=== PATIENT | male | born 1955 | race Caucasian/White ===

== ENCOUNTER → 2017-02-06 | Outpatient (CLI) | payer OTHER ==
[2017-02-06 11:31] LABS: BLOOD UREA NITROGEN 6 MG/DL (7-18); CREATININE FOR GFR 0.66 MG/DL (0.70-1.30); GLOMERULAR FILTRATION RATE > 60.0 (>49)
--- NOTE | 2017-02-06 14:19 | REP ---
MR BRAIN WITHOUT CONTRAST: HISTORY: Bilateral hearing loss. Contrast: ProHance 15 mL. Areas of increased signal intensity on T2-weighted images are present in the periventricular and subcortical white matter and prerna. This represents small vessel ischemic disease. There is no intraparenchymal hemorrhage, infarct, mass or midline shift. There is no abnormal enhancement. The ventricular system and cortical sulci are dilated consistent with minimal volume loss. There is no extracerebral collection. There is no cerebellopontine angle mass. The inner ear structures are normal in appearance. The mastoid air cells and sinuses are clear. IMPRESSION: 1. Small vessel ischemic disease. 2. Minimal volume loss. Signed by Kevin Madera MD 02/06/2017 02:35 P
== END ==
LOC: M RAD 10:57
PROVIDERS: ATTEND Otolaryngology
DX: H90.3 Sensorineural hearing loss, bilateral (principal); H93.13 Tinnitus, bilateral; J31.0 Chronic rhinitis

== ENCOUNTER 2017-06-18 11:18 | Day surgery (SDC) | payer OTHER ==
[~2017-06-18] VITALS: Ht 172.7 cm; Wt 86.2 kg
[~2017-06-18 11:18] MED LIST: LR 1,000 ML IV ONE
[2017-06-18] MEDS ORDERED: CIPRODEX OTIC SUSP 7.5ML As Ordered ONE (13:35)
[2017-06-18] MEDS ORDERED: fentaNYL 100 MCG/2 ML INJECTION (J3010) As Ordered ONE (13:55)
[2017-06-18] MEDS ORDERED: LIDOCAINE 2% INJ 100 MG/5 ML SDV (FOR ANES.) As Ordered ONE (13:55)
[2017-06-18] MEDS ORDERED: PROPOFOL 200 MG/20 ML VIAL As Ordered ONE (13:55)
[2017-06-18] MEDS ORDERED: MIDAZOLAM INJ 2 MG/2 ML VIAL (J2250) As Ordered ONE (13:55)
[2017-06-18] MEDS ORDERED: ONDANSETRON 4MG/2ML VIAL (J2405) As Ordered ONE (13:55)
[2017-06-18] MEDS ORDERED: PERCOCET 5MG/325MG TAB As Ordered ONE (14:24)
[2017-06-18] MEDS ORDERED: PERCOCET 5MG/325MG TAB PO PRN (14:30)
[2017-06-18] MEDS ORDERED: ONDANSETRON 4MG/2ML VIAL (J2405) IV PRN (14:30)
[2017-06-18] MEDS ORDERED: fentaNYL 100 MCG/2 ML INJECTION (J3010) IV PRN (14:30)
[2017-06-18] MEDS ORDERED: LR 1,000 ML IV SCH (14:30)
[2017-06-18 15:50] VITALS: BP 166/80
--- NOTE | 2017-07-02 09:32 | RO ---
DATE OF PROCEDURE: 06/18/2017 PREPROCEDURE DIAGNOSIS: Eustachian tube dysfunction. POSTPROCEDURE DIAGNOSIS: Eustachian tube dysfunction. PROCEDURE: Bilateral tympanostomy. SURGEON: Dr. Jaime Rogers DRAWER LINER: ANESTHESIA: General. CLINICAL PREAMBLE: This 62-year-old man has multiple set of tympanic membrane tube. He will do well until the tubes are extruded. Management options including replacement of the tympanic membrane tubes have been discussed. Patient understood and consented to the procedure. DESCRIPTION OF PROCEDURE: Patient was identified in preholding and brought to the operating room in stable condition. In the supine position on the operating room table, he received general anesthesia followed by orotracheal intubation without incident. Patient prepped and draped in the usual fashion for the procedure. The patient's head was turned to the left side to expose the right ear. Ear speculum was inserted and cerumen was debrided. The right tympanic membrane was visualized and found to be intact and retracted. Myringotomy incision was made over the anterior-inferior quadrant of tympanic membrane. The middle ear was suctioned clear. A 7 mm straight shank tympanostomy tube was inserted. Ciprodex drops were instilled, and a cotton ball was used to occlude the ear canal. The same procedure was carried out to place the same type of tympanostomy tube to the left ear as well. At the end of the end of the procedure, sponge and needle counts were correct. No complications were encountered. Estimated blood loss was nil. General anesthesia was reversed, and patient was awakened and taken to recovery room in stable condition. DIANNA
== END 2017-06-18 15:50 | disposition home or self-care (01) ==
LOC: M SDC 11:18
PROVIDERS: ATTEND Otolaryngology
DX: H69.93 Unspecified Eustachian tube disorder, bilateral (principal); H93.13 Tinnitus, bilateral; H90.3 Sensorineural hearing loss, bilateral; F17.210 Nicotine dependence, cigarettes, uncomplicated

== ENCOUNTER → 2020-08-17 | Outpatient (CLI) | payer OTHER | LOC: M LABSMTC 10:14 | PROVIDERS: ATTEND Anesthesiology | DX: Z01.812 Encounter for preprocedural laboratory examination (principal); Z20.828 Contact with and (suspected) exposure to other viral communicable diseases | CPT/HCPCS: C9803; U0003 ==

== ENCOUNTER 2020-08-21 07:24 | Day surgery (SDC) | payer OTHER ==
[~2020-08-21] VITALS: Ht 177.8 cm; Wt 83.0 kg
[~2020-08-21 07:24] MED LIST changes: +ceFAZolin SOD 2 GM in IV 1 EA IV ONE; +fentaNYL 100 MCG/2 ML INJECTION (J3010) IV SCH
[2020-08-21] MEDS ORDERED: dexameTHASONE 10MG/1ML VIAL PRES.FREE (J1100 PER 1MG) ONE (07:25)
[2020-08-21] MEDS ORDERED: ROPIvacaine 0.5% 30ML INJECTION (J2795 PER 1MG) ONE (07:25)
[2020-08-21] MEDS ORDERED: LIDOCAINE 1% MDV 20ML VIAL ONE (07:25)
[2020-08-21] MEDS ORDERED: fentaNYL 100 MCG/2 ML INJECTION (J3010) As Ordered ONE ×2 (08:12→08:48)
[2020-08-21] MEDS ORDERED: MIDAZOLAM INJ 2MG/2ML VIAL (J2250 PER 1MG) As Ordered ONE ×2 (08:13→08:48)
[2020-08-21] MEDS ORDERED: KETOROLAC 60MG 2ML VIAL As Ordered ONE ×2 (08:13→10:49)
[2020-08-21] MEDS ORDERED: dexameTHASONE 4 MG/ML 1ML VIAL (J1100 PER 1MG) As Ordered ONE (08:13)
[2020-08-21] MEDS ORDERED: propofoL 200 MG/20 ML VIAL As Ordered ONE (08:13)
[2020-08-21] MEDS ORDERED: ONDANSETRON 4MG/2ML VIAL As Ordered ONE (08:13)
[2020-08-21] MEDS ORDERED: SUGAMMADEX SODIUM 500 MG/5 ML VIAL (BRIDION) As Ordered ONE (08:14)
[2020-08-21] MEDS ORDERED: LIDOCAINE 2% 100MG/5ML SDV (FOR ANES.) As Ordered ONE (08:14)
[2020-08-21] MEDS ORDERED: ROCURONIUM BROMIDE 50 MG/5 ML VIAL As Ordered ONE (08:14)
[2020-08-21] MEDS ORDERED: ALBUTEROL SULFATE 2.5 MG/0.5 ML INH NEB SOLN As Ordered ONE (08:45)
[2020-08-21] MEDS ORDERED: ALBUTEROL SULFATE 2.5 MG/0.5 ML INH NEB SOLN INH ONE (09:00)
[2020-08-21] MEDS: MIDAZOLAM INJ 2MG/2ML VIAL (J2250 PER 1MG) IV SCH ×2 (09:19→09:21)
[2020-08-21] MEDS ORDERED: EPINEPHrine 1MG/ML INJ 30ML MD-VIAL As Ordered ONE (09:51)
[2020-08-21] MEDS ORDERED: ACETAMINOPHEN 1000MG 100ML IV BTL (OFIRMEV) (J0131 PER 10MG) As Ordered ONE (10:50)
[2020-08-21] MEDS ORDERED: PHENYLephrine HCL 500 MCG/5 ML (100MCG/ML) SYRINGE (J2370) As Ordered ONE ×2 (10:58→11:51)
[2020-08-21] MEDS ORDERED: LR 1,000 ML IV SCH ×2 (13:00→13:15)
[2020-08-21] MEDS ORDERED: ACETAMINOPHEN TAB 650MG DOSE (2X325MG) PO PRN (13:00)
[2020-08-21] MEDS ORDERED: fentaNYL 100 MCG/2 ML INJECTION (J3010) IV PRN (13:15)
[2020-08-21] MEDS ORDERED: ONDANSETRON 4MG/2ML VIAL IV PRN ×2 (13:15)
[2020-08-21] MEDS ORDERED: MORPHINE 2 MG/ML 1ML VIAL (J2270) IV PRN (13:15)
[2020-08-21] MEDS ORDERED: oxyCODONE 5MG TAB PO PRN (13:15)
[2020-08-21] MEDS ORDERED: PERCOCET 5MG/325MG TAB PO PRN (13:15)
[2020-08-21 15:35] VITALS: BP 119/79
--- NOTE | 2020-08-22 08:50 | RO ---
DATE OF OPERATION: 08/21/2020 PREOPERATIVE DIAGNOSIS: Left shoulder rotator cuff tear. POSTOPERATIVE DIAGNOSIS: Left shoulder rotator cuff tear, type 2 SLAP tear. PLANNED PROCEDURE: Left shoulder arthroscopic rotator cuff repair. PROCEDURE PERFORMED: Left shoulder arthroscopic rotator cuff repair, subacromial decompression, subpectoral open biceps tenodesis. SURGEON: Nathan Maldonado MD RN ENTEROSTOMAL: [facility] EM[facility]GENCY RO[facility] ORDERLY: Susanna Bernabe TYPE OF ANESTHETIC: General anesthetic plus block. OPERATIVE PREAMBLE: This 65-year-old man failed conservative management. He had had a previous rotator cuff repair x2 on the other side. He wished to go ahead with surgery. Discussed the pros, cons, risks and benefits and I reiterated the risks, in the preoperative holding marked the left upper extremity and proceeded to surgery after the patient received preoperative block. OPERATIVE REPORT: The patient was brought to the operating theater and administered general anesthetic. He was administered 2 gm IV Ancef prior to the start of the case. He was placed in left lateral decubitus in beanbag positioner. Axillary roll was placed. SCDs were used on the down legs as well as bear hugger. Limb was prepped and draped in the usual sterile fashion with Chlorhexidine-based prep solution. Solution was allowed to dry over 3 minutes prior to draping. 10 pounds of traction was used throughout the case, 45 degrees abduction. Preoperative time out was performed confirming site, patient and surgery. I began by inserting the arthroscope through standard posterior approach into the interarticular portion of the shoulder. Using spinal needle localization inside-out localization technique to perform an anterior portal and through the rotator interval just posterior to the biceps tendon. I performed debridement of the circumferential aspect of the labrum. Cartilage had grade 2 to 3 changes in the glenoid, more toward 6 o'clock position. Normal only grade 1 softening. There was an obvious anterior supraspinatus tendon tear, no other rotator cuff tears. The biceps was unstable, type 2 SLAP tear. I performed biceps tenotomy intraarticular with the ablating instrument. I then withdrew the scope and placed in subacromial space. I performed two lateral portals and inserted two cannulas there. I had to stop the anterolateral leading edge of the acromion. I performed subacromial decompression as well as takedown of the CA ligament for its breadth. I gently debrided the edge of the tear. This was on the anterior leading edge consistent with the MRI findings. The tear measured approximately 1.5 cm anterior to posterior as well as 1.5 cm medial to lateral. It was a small crescent-shaped tear. I used a bur to create a bleeding bed just on the undersurface of the tear of the greater tuberosity. Later laid a small amount of soft tissue just lateral to the tear on the down slope of the proximal humerus. I then used #2 FiberWire suture two stitches in inverted horizontal mattress fashion to form four suture limbs. I tapped for an Arthrex anchor down to the second line of the punch. I then inserted the sutures into the anchor, appropriately tensioned them and inserted the anchor and cut the sutures short in a stay suture. This is an Arthrex 4.25 mm Bio-Composite SwiveLock anchor. It achieved appropriate footprint compression of small anterior leading edge tear. I then turned my attention to performing subpectoral biceps tenodesis. I made a small longitudinal incision centered over long head of the biceps just at pectoralis major on proximal edge medial aspect of upper humerus. Carried the dissection down through skin and subcutaneous tissue and achieved meticulous hemostasis. I identified the long head of the biceps and delivered this through the incision. I moved pathological appearing tendon from proximal end of the tendon. I used the Arthrex Bio-Tenodesis Button System. I used the Kristian needle to perform whip stitching of at least six whip stitches starting at the musculotendinous junction and locking it distally. I then passed the sutures in alternating fashion through the button. I cleared of any soft tissue and identified the groove on the proximal humerus at the level of the pectoralis major just distal to this. I drilled bicortical using spade-tip drill and then inserted the button bicortical and tensioned the sutures down to deliver the tendon into drill hole and deliver the tendon into the tunnel. These were tied over using alternating half hitches and cut short. The tension appeared appropriate. Wound was thoroughly irrigated. Subcutaneous tissue was closed with interrupted 2-0 Vicryl suture and 3-0 Monocryl. Skin was cleaned with wet-to-dry dressing followed by application of Steri-Strips, Adaptic, 4 x 8 gauze, ABD dressing and cloth tape. The patients upper extremity placed into a sling. The patient was awoken from general anesthetic, transferred off the operating table and taken to postanesthetic care unit in stable condition. All sponge, instrument and needle counts were correct. No complications. Estimated blood loss 50 mL. Plan is for the patient to be discharged home according to day surgery criteria. She will remain in a sling, pendulum exercises but no active elbow range of motion, only passive. Follow up in 2 weeks time. Prescription was sent to pharmacy of choice. Change dressing on postop day 2 but avoid showering or tub for first 14 days. [employer] Susanna Bernabe was instrumental in holding retractors, achieving visualization and completing the case. DIANNA
--- NOTE | 2020-08-24 07:51 | ECGEPIP ---
[facility] Test Date: 2020-08-21 Pat Name: MARCELINA SPRAGUE Department: Room: - Gender: Male Career Development Coordinator: : [id number] Requested By: KEI Mloina Order Number: [id number] Reading MD: Leopoldo Mcwilliams Measurements Intervals [place] Rate: 87 P: 50 [place]: 140 QRS: 28 QRSD: 99 T: 29 QT: 360 QTc: 434 Interpretive Statements SINUS RHYTHM Normal Electronically Signed on 08-24-2020 7:51:50 EDT by Leopoldo Mcwilliams
== END 2020-08-21 15:37 | disposition home or self-care (01) ==
LOC: M SDC 07:24
PROVIDERS: ATTEND Orthopaedic Surgery Sports Medicine
DX: M75.102 Unspecified rotator cuff tear or rupture of left shoulder, not specified as traumatic (principal); S43.432A Superior glenoid labrum lesion of left shoulder, initial encounter; F17.218 Nicotine dependence, cigarettes, with other nicotine-induced disorders; J44.9 Chronic obstructive pulmonary disease, unspecified; Z88.8 Allergy status to other drugs, medicaments and biological substances; Y92.89 Other specified places as the place of occurrence of the external cause; Y93.9 Activity, unspecified; Y99.9 Unspecified external cause status; X58.XXXA Exposure to other specified factors, initial encounter
CPT/HCPCS: 23430; 29826; 29827; 64415; 88304; 93005; C1713; J0131; J0690; J1100; J1885; J2250; J2370; J2405; J2795; J3010

== ENCOUNTER 2021-02-11 14:25 | Emergency (ER) | payer MEDICAID, OTHER ==
[~2021-02-11] VITALS: Ht 177.8 cm; Wt 98.9 kg
[2021-02-11 16:12] LABS: BASO % 0.4 % (0.0-1.0); EOS # 0.3 10^3/uL (0.0-0.5); EOS % 3.7 % (0.0-3.0); HEMATOCRIT 28.5 % (42.0-52.0); HEMOGLOBIN 8.4 g/dl (13.5-17.5); LYMPH % 12.6 % (24.0-44.0); MEAN CORPUSCULAR HEMOGLOBIN 20.5 pg (27.0-33.0); MEAN CORPUSCULAR HGB CONC 29.5 g/dl (32.0-36.5); MEAN CORPUSCULAR VOLUME 69.7 fl (80.0-96.0); MONO # 1.4 10^3/uL (0.0-0.8); MONO % 16.6 % (2.0-8.0); NEUTROPHILS # 5.4 10^3/uL (1.5-8.5); NEUTROPHILS % 66.5 % (36.0-66.0); PLATELET COUNT, AUTOMATED 155 10^3/uL (150-450); RED BLOOD COUNT 4.09 10^6/uL (4.30-6.10); WHITE BLOOD COUNT 8.1 10^3/uL (4.0-10.0)
[2021-02-11 16:24] LABS: INR 1.34; PROTHROMBIN TIME 16.9 SECONDS (12.5-14.3)
[2021-02-11 16:25] LABS: PARTIAL THROMBOPLASTIN TIME 36.1 SECONDS (24.2-38.5)
[2021-02-11 16:37] LABS: BLOOD UREA NITROGEN 4 MG/DL (7-18); CALCIUM LEVEL 8.5 MG/DL (8.8-10.2); CARBON DIOXIDE LEVEL 27 MEQ/L (21-32); CHLORIDE LEVEL 100 MEQ/L (98-107); CREATININE FOR GFR 0.57 MG/DL (0.70-1.30); GLOMERULAR FILTRATION RATE > 60.0 (>49); GLUCOSE, FASTING 112 MG/DL (70-100); POTASSIUM SERUM 3.8 MEQ/L (3.5-5.1); SODIUM LEVEL 133 MEQ/L (136-145)
[2021-02-11 16:39] LABS: ALBUMIN 3.3 GM/DL (3.2-5.2); BILIRUBIN,DIRECT 0.5 MG/DL (0.0-0.2); ETHYL ALCOHOL (ETHANOL) 0.101 % (0.000-0.010); TOTAL PROTEIN 7.5 GM/DL (6.4-8.2)
[2021-02-11 19:15] VITALS: BP 119/75
== END 2021-02-11 22:10 | disposition home or self-care (01) ==
LOC: M ED 14:25
DX: K70.31 Alcoholic cirrhosis of liver with ascites (principal); D64.9 Anemia, unspecified; I10 Essential (primary) hypertension; E78.5 Hyperlipidemia, unspecified; F10.10 Alcohol abuse, uncomplicated; F17.200 Nicotine dependence, unspecified, uncomplicated

== ENCOUNTER → 2021-02-26 | Outpatient (POV) | payer MEDICARE, MEDICAID ==
[~2021-02-26] VITALS: Ht 177.8 cm; Wt 86.8 kg
[2021-02-26 10:28] VITALS: BP 140/80
--- NOTE | 2021-02-27 13:41 | IRCOV ---
[facility] IR Consult Office Visit IR Consult Office Visit REASON FOR CONSULTATION/CHIEF COMPLAINT: Ascites. HISTORY OF PRESENT ILLNESS: 66-year-old male who has received his care in the past at [facility] and [place], is referred to us for evaluation of his alcoholic cirrhosis and ascites. Patient states that he drank very heavy for many many years and he has cirrhosis of the liver. He has cut down his drinking to 12 beers a day. He denies any history of hepatitis. He does not see gastroenterology or a liver specialist. He states he had an endoscopy 6 years ago which showed he had an ulcer. He doesn't know if he has varices. He denies hematemesis or melena. He describes sometimes his belly gets distended and the last time it was very distended and uncomfortable, he underwent a paracentesis in [place]. He reports this is done in December 2020. He feels full at the moment and thinks he might need to have fluid drained from his abdomen. He is not on any diuretics. He is not on any medication. He denies prior liver biopsy. ALLERGIES: Please see below. HOME MEDICATIONS: Please see below. PAST MEDICAL HISTORY: Alcoholic liver cirrhosis PAST SURGICAL HISTORY: Patient denies prior surgery FAMILY HISTORY: Noncontributory. SOCIAL HISTORY: Drinks 12 beers a day. Denies alcohol or drugs. REVIEW OF SYSTEMS: Otherwise negative. PHYSICAL EXAMINATION: VITAL SIGNS: Please see below. GENERAL APPEARANCE: Appears well. Comfortable at rest. HEENT: No scleral icterus. RESPIRATORY: Normal breathing at rest. CARDIOVASCULAR: Normal rate. Systolic murmur. ABDOMEN: Distended. Shifting dullness. Nontender. Umbilical hernia observed. EXTREMITIES: Mild edema. NEUROLOGICAL: Alert and oriented. PSYCHIATRIC: Appropriate to circumstance. LABORATORY DATA: 02/11/2021 hemoglobin 8.4 hematocrit 28.5 WBC 8.1 platelets 155 sodium 133 potassium 3.8 BUN 4 creatinine 0.57 GFR greater than 60 total bilirubin 1.0 AST 35 ALT 24 ALP 129 albumin 3.3 INR 1.34 Na Meld score: 10 Imaging: No abdominal imaging in the system. ASSESSMENT/PLAN: 66-year-old male with self-reported alcohol-related cirrhosis and suspected ascites. Patient will be referred to gastroenterology to establish care for annual variceal surveillance and to start diuretics for medical management of ascites. Patient will be referred to [facility] for paracentesis. Patient does not have an indication at present for a TIPS. I spent 30 minutes in consultation with the patient. Thank you for this referral. Cc Francine Mclaughlin. [facility] Cc Dr. Li Allergies Coded Allergies: Loihfca-Qdd-Pnp Reductase Inhibitor (Verified Adverse Reaction, Intermediate, MAKES PATIENT FEEL EXTREMELY ILL, 08/16/20) Home Medications No Active Prescriptions or Reported Meds VS, I&O, 24H, Fishbone Vital Signs/I&O Vital Signs Date Time Temp Pulse Resp B/P (MAP) Pulse Ox O2 Delivery O2 Flow Rate FiO2 02/26/21 10:28 98.7 92 20 140/80 (100) 100 Room Air NOEMI ARTEAGA MD Feb 27, 2021 13:41
== END ==
LOC: M IRPOV 10:04
PROVIDERS: ATTEND Radiology Diagnostic Radiology
DX: K70.31 Alcoholic cirrhosis of liver with ascites (principal); Z88.8 Allergy status to other drugs, medicaments and biological substances

== ENCOUNTER → 2021-02-28 | Outpatient (CLI) | payer MEDICARE, MEDICAID ==
--- NOTE | 2021-02-28 14:54 | REP ---
INDICATION: ASCITES, CIRRHOSIS. COMPARISON: None TECHNIQUE: Four-quadrant ultrasound to assess for ascites FINDINGS: There is no evidence of ascites IMPRESSION: Unremarkable 4 quadrant ultrasound. Accredited by the [employer] in General Ultrasound. <Electronically signed by Nader Sotelo > 02/28/21 [id number]
== END ==
LOC: M IRPRO 13:24
PROVIDERS: ATTEND Radiology Diagnostic Radiology
DX: R18.8 Other ascites (principal); Z53.9 Procedure and treatment not carried out, unspecified reason

== ENCOUNTER → 2021-04-26 | Outpatient (CLI) | payer MEDICARE, MEDICAID ==
[2021-04-26 17:53] LABS: CREATININE,RANDOM URINE 17.1 MG/DL
[2021-04-26 17:54] LABS: HEMATOCRIT 29.4 % (42.0-52.0); HEMOGLOBIN 8.7 g/dl (13.5-17.5); MEAN CORPUSCULAR HEMOGLOBIN 21.2 pg (27.0-33.0); MEAN CORPUSCULAR HGB CONC 29.6 g/dl (32.0-36.5); MEAN CORPUSCULAR VOLUME 71.7 fl (80.0-96.0); PLATELET COUNT, AUTOMATED 122 10^3/uL (150-450); WHITE BLOOD COUNT 5.8 10^3/uL (4.0-10.0)
[2021-04-26 17:55] LABS: ALBUMIN 3.6 GM/DL (3.2-5.2); ALT/SGPT 26 U/L (12-78); BILIRUBIN,DIRECT 0.4 MG/DL (0.0-0.2); BILIRUBIN,TOTAL 0.8 MG/DL (0.2-1.0); BLOOD UREA NITROGEN 3 MG/DL (7-18); CALCIUM LEVEL 8.7 MG/DL (8.8-10.2); CARBON DIOXIDE LEVEL 26 MEQ/L (21-32); CHLORIDE LEVEL 104 MEQ/L (98-107); CREATININE FOR GFR 0.57 MG/DL (0.70-1.30); GLOMERULAR FILTRATION RATE > 60.0 (>49); GLUCOSE, FASTING 90 MG/DL (70-100); MAGNESIUM LEVEL 2.3 MG/DL (1.8-2.4); POTASSIUM SERUM 3.8 MEQ/L (3.5-5.1); SODIUM LEVEL 138 MEQ/L (136-145); TOTAL PROTEIN 7.8 GM/DL (6.4-8.2)
[2021-04-26 18:06] LABS: INR 1.29; PARTIAL THROMBOPLASTIN TIME 35.5 SECONDS (24.2-38.5); PROTHROMBIN TIME 16.4 SECONDS (12.5-14.3)
[2021-04-26 18:17] LABS: HEPATITIS B SURFACE ANTIGEN NEGATIVE (NEGATIVE)
[2021-04-26 18:33] LABS: ANISOCYTOSIS 3+; ATYPICAL LYMPH 5 % (0-5); BASOPHILS 1 % (0-1); HYPOCHROMASIA 2+; LYMPHOCYTES 15 % (16-44); MICROCYTOSIS 2+; MONOCYTES 10 % (0-5); NEUTROPHILS 69 % (28-66); PLATELET ESTIMATE DECREASED (NORMAL)
[2021-04-26 18:34] LABS: POLYCHROMASIA 1+
[2021-04-26 18:46] LABS: HEPATITIS C VIRUS ABY INDEX < 0.0 INDEX (<0.8)
[2021-04-28 06:37] LABS: HEPATITIS A IgG TOTAL Negative (Negative); HEPATITIS B CORE ANTIBODY IGG Negative (Negative)
== END ==
LOC: M LAB 16:32
PROVIDERS: ATTEND Internal Medicine Gastroenterology
DX: K70.31 Alcoholic cirrhosis of liver with ascites (principal)

== ENCOUNTER → 2021-05-09 | Outpatient (CLI) | payer MEDICARE, MEDICAID ==
[~2021-05-09] MED LIST changes: +FURO40TA2 PO; -LR 1,000 ML IV ONE; +SPIR50TA4 PO; -ceFAZolin SOD 2 GM in IV 1 EA IV ONE; -fentaNYL 100 MCG/2 ML INJECTION (J3010) IV SCH
[2021-05-09 15:08] VITALS: BP 119/85
[2021-05-09 17:37] LABS: APPEARANCE, BODY FLUID HAZY (CLEAR); ASCITES FL COLOR YELLOW (COLORLESS); SOURCE, BODY FLUID ASCITES
[2021-05-09 18:31] LABS: SOURCE, BODY FLUID ALBUMIN ASCITES; SOURCE, BODY FLUID TOT PROTEIN ASCITES; TOTAL PROTEIN, BODY FLUID 2.7 G/DL (NOT ESTABLISHED)
--- NOTE | 2021-05-10 11:17 | REP ---
INDICATION: ALCOHOLIC CIRRHOSIS OF LIVER. COMPARISON: None. TECHNIQUE: The procedure was performed under the direct supervision of Dr. Durant. The risks and benefits of the procedure were explained to the patient and informed consent was obtained. The largest pocket of fluid was localized in the right flank using ultrasound guidance. The skin was prepped and draped in a sterile fashion. 1% lidocaine was used as a local anesthetic. Using ultrasound guidance, an 8-Wolof multi side-hole catheter was inserted using trocar technique.650 cc of yellow fluid was withdrawn with a sample sent to the lab for analysis. The patient tolerated the procedure well and there were no immediate complications. After the appropriate amount of monitored convalescence, the patient was discharged from the department. FINDINGS: None IMPRESSION: Ultrasound-guided paracentesis cc of yellow fluid. <Electronically signed by Prasanna Nash > 05/09/21 [id number] <Electronically signed by Angel Durant > 05/10/21 [id number]
== END ==
LOC: M IRPRO 14:16
PROVIDERS: ATTEND Internal Medicine Gastroenterology
DX: K70.31 Alcoholic cirrhosis of liver with ascites (principal)

== ENCOUNTER → 2021-05-22 | Outpatient (CLI) | payer MEDICARE, MEDICAID ==
--- NOTE | 2021-05-22 08:56 | REP ---
INDICATION: CIRRHOSIS OF LIVER W/ ASCITES W/ HTN. COMPARISON: 02/28/2021. TECHNIQUE: Real-time sonographic evaluation of ABDOMEN PERFORMED, WITH DUPLEX DOPPLER EVALUATION OF PORTAL VASCULATURE. FINDINGS: The gallbladder demonstrates no evidence of intraluminal sludge or calculi, wall thickening or pericholecystic fluid. There is no intrahepatic or extrahepatic biliary dilatation, common bile duct measures 5 mm in maximum diameter. The liver is coarsened and heterogeneous in echotexture with no focal mass. There are lobulated margins. The findings are compatible with cirrhosis. Visualized pancreas is grossly unremarkable, not optimally seen due to overlying bowel gas. Spleen is normal in length 11.9 cm with no intrinsic abnormality, however, splenic index is increased. Spleen measures 11.9 x 11.7 x 7.0 cm, splenic index 974.6. There is no evidence of hydronephrosis, cyst, mass, or calculus in either kidney. The right kidney measures 13.8 x 7.4 x 5.6 cm. Left renal dimensions are 10.3 x 4.2 x 4.4 cm. The abdominal aorta could not be visualized due to overlying bowel gas. There is a small amount of perihepatic fluid. The main portal vein measures 9 mm in diameter. The splenic vein and portal veins demonstrate normal direction of flow, with normal flow velocities. Phasic waveforms are noted in the portal veins. There is no portal vein thrombosis. Hepatic veins are patent with no thrombus. There is decreased phasicity in the hepatic veins. Patent main hepatic artery demonstrates peak systolic velocity of 152.7 centimeters/second. IMPRESSION: The liver has a cirrhotic appearance with no gross mass. Mild perihepatic fluid. Splenomegaly. Portal vasculature demonstrates normal direction of flow with no thrombosis. No evidence of hepatic vein thrombosis. Phasic waveforms in the portal veins. Decreased phasicity in the hepatic veins. <Electronically signed by Angel Durant > 05/22/21 [id number]
== END ==
LOC: M RAD 07:22
PROVIDERS: ATTEND Internal Medicine Gastroenterology
DX: K70.31 Alcoholic cirrhosis of liver with ascites (principal); K76.6 Portal hypertension

== ENCOUNTER → 2021-05-30 | Outpatient (CLI) | payer MEDICARE, MEDICAID ==
--- NOTE | 2021-05-30 14:58 | REP ---
INDICATION: LUNG NODULE ABN CXR. Evaluate prostate, pre and postvoid bladder volume check for bladder outlet obstruction. COMPARISON: None. TECHNIQUE: Transabdominal scanning is performed with including pre and postvoid imaging. FINDINGS: Prevoid bladder volume is calculated at 229 mL. Bladder lechuga are somewhat trabeculated diffusely. Lechuga are somewhat thickened 5-6 mm. The postvoid bladder volume is calculated at 116 mL, 51% postvoid residual. There is a tiny trace of fluid in the pelvic reflection. The prostate dimensions are 4.2 x 3.6 x 3.5 cm on transabdominal imaging for a calculated prostate volume of 27.7 mL. Prostate gland subtly elevates the base of the bladder. IMPRESSION: Trabeculated bladder lechuga. 51% postvoid residual. Mildly prominent prostate gland.. <Electronically signed by Rich Davila > 05/30/21 [id number]
== END ==
LOC: M RAD 14:10
PROVIDERS: ATTEND Internal Medicine Gastroenterology
DX: K70.31 Alcoholic cirrhosis of liver with ascites (principal)

== ENCOUNTER → 2021-11-14 | Outpatient (CLI) | payer MEDICARE, MEDICAID ==
[~2021-11-14] MED LIST changes: +ASPI-551 PO; +FOLI1TAB11 PO; +LACT10SO3 PO; +LISI5TAB11 PO; +PANT40TA29 PO; +POTA-136 PO; +SUCR1TA PO; +TAMS1CAP17 PO; +THIA100T22 PO; +VITMTA PO
[2021-11-14 12:17] LABS: BASO % 0.3 % (0.0-1.0); EOS # 0.1 10^3/uL (0.0-0.5); EOS % 0.9 % (0.0-3.0); HEMATOCRIT 34.3 % (42.0-52.0); HEMOGLOBIN 11.1 g/dl (13.5-17.5); LYMPH # 0.8 10^3/uL (1.5-5.0); MEAN CORPUSCULAR HEMOGLOBIN 27.8 pg (27.0-33.0); MEAN CORPUSCULAR HGB CONC 32.4 g/dl (32.0-36.5); MEAN CORPUSCULAR VOLUME 85.8 fl (80.0-96.0); MONO # 1.2 10^3/uL (0.0-0.8); MONO % 16.7 % (2.0-8.0); NEUTROPHILS # 4.8 10^3/uL (1.5-8.5); NEUTROPHILS % 69.7 % (36.0-66.0); PLATELET COUNT, AUTOMATED 118 10^3/uL (150-450); WHITE BLOOD COUNT 6.9 10^3/uL (4.0-10.0)
[2021-11-14 12:27] LABS: INR 1.34
[2021-11-14 12:28] LABS: PARTIAL THROMBOPLASTIN TIME 35.5 SECONDS (25.9-37.0)
[2021-11-14 12:38] LABS: ALBUMIN 3.4 GM/DL (3.2-5.2); ALT/SGPT 24 U/L (12-78); BILIRUBIN,DIRECT 0.5 MG/DL (0.0-0.2); BLOOD UREA NITROGEN 10 MG/DL (7-18); CALCIUM LEVEL 9.6 MG/DL (8.8-10.2); CARBON DIOXIDE LEVEL 25 MEQ/L (21-32); CHLORIDE LEVEL 100 MEQ/L (98-107); CREATININE FOR GFR 0.79 MG/DL (0.70-1.30); GLOMERULAR FILTRATION RATE > 60.0 (>49); GLUCOSE, FASTING 105 MG/DL (70-100); POTASSIUM SERUM 4.4 MEQ/L (3.5-5.1); SODIUM LEVEL 134 MEQ/L (136-145); TOTAL PROTEIN 7.2 GM/DL (6.4-8.2)
== END ==
LOC: M LAB 11:33
PROVIDERS: ATTEND Internal Medicine Gastroenterology
DX: K42.9 Umbilical hernia without obstruction or gangrene (principal); K70.31 Alcoholic cirrhosis of liver with ascites

== ENCOUNTER → 2021-11-14 | Outpatient (CLI) | payer MEDICARE, MEDICAID | LOC: M LABSMTC 10:06 | PROVIDERS: ATTEND Anesthesiology | DX: Z01.818 Encounter for other preprocedural examination (principal); Z11.52 Encounter for screening for COVID-19 ==

== ENCOUNTER → 2021-12-12 | Outpatient (CLI) | payer MEDICARE, MEDICAID ==
[~2021-12-12] MED LIST changes: +GASTROGRAFIN SOLUTION 30ML (Q9963) As Ordered ONE; +HYDR-3715 PO
== END ==
LOC: M RAD 13:53
PROVIDERS: ATTEND Internal Medicine Gastroenterology
DX: K42.9 Umbilical hernia without obstruction or gangrene (principal)
CPT/HCPCS: 74176; Q9963

== ENCOUNTER 2021-12-31 11:25 | Day surgery (SDC) | payer MEDICARE, MEDICAID ==
[~2021-12-31] VITALS: Ht 177.8 cm; Wt 83.5 kg
[~2021-12-31 11:25] MED LIST changes: -GASTROGRAFIN SOLUTION 30ML (Q9963) As Ordered ONE; +LIDOCAINE 1% MDV 20ML VIAL SQ PRN; +LIDOCAINE 2% 100MG/5ML SDV (FOR ANES.) As Ordered ONE; +LR 1,000 ML IV ONE; +MIDAZOLAM INJ 2MG/2ML VIAL (J2250 PER 1MG) As Ordered ONE; +ceFAZolin SOD 2 GM in IV 1 EA IV ONE; +fentaNYL 100 MCG/2 ML INJECTION As Ordered ONE; +propofoL 200 MG/20 ML VIAL As Ordered ONE
[2021-12-31] MEDS ORDERED: BUPIVACAINE HCL 0.25% 30ML VIAL As Ordered ONE (12:42)
[2021-12-31] MEDS ORDERED: PERCOCET 5MG/325MG TAB PO PRN (13:30)
[2021-12-31] MEDS ORDERED: LR 1,000 ML IV SCH (13:30)
[2021-12-31] MEDS ORDERED: ONDANSETRON 4MG/2ML VIAL IV PRN (13:30)
[2021-12-31 13:45] VITALS: BP 128/76
== END 2021-12-31 14:00 | disposition home or self-care (01) ==
LOC: M SDC 11:25
PROVIDERS: ATTEND Surgery
DX: L76.34 Postprocedural seroma of skin and subcutaneous tissue following other procedure (principal); K70.30 Alcoholic cirrhosis of liver without ascites; F17.218 Nicotine dependence, cigarettes, with other nicotine-induced disorders; I25.10 Atherosclerotic heart disease of native coronary artery without angina pectoris; I10 Essential (primary) hypertension; Z79.82 Long term (current) use of aspirin; Z79.899 Other long term (current) drug therapy; Z88.8 Allergy status to other drugs, medicaments and biological substances
CPT/HCPCS: 10140; J0690; J2250; J3010

== ENCOUNTER → 2024-01-01 | Outpatient (CLI) | payer MEDICARE, MEDICAID ==
[~2024-01-01] MED LIST changes: +ERGO500029 PO; -LIDOCAINE 1% MDV 20ML VIAL SQ PRN; -LIDOCAINE 2% 100MG/5ML SDV (FOR ANES.) As Ordered ONE; -LR 1,000 ML IV ONE; -MIDAZOLAM INJ 2MG/2ML VIAL (J2250 PER 1MG) As Ordered ONE; -ceFAZolin SOD 2 GM in IV 1 EA IV ONE; -fentaNYL 100 MCG/2 ML INJECTION As Ordered ONE; -propofoL 200 MG/20 ML VIAL As Ordered ONE
== END ==
LOC: M RAD 10:10
PROVIDERS: ATTEND Physician Assistant Medical
DX: I70.203 Unspecified atherosclerosis of native arteries of extremities, bilateral legs (principal)

== ENCOUNTER 2024-01-12 07:49 | Day surgery (SDC) | payer MEDICARE, MEDICAID ==
[~2024-01-12] VITALS: Ht 172.7 cm; Wt 100.2 kg
[2024-01-12] MEDS: PHENYLEPHRINE 2.5% OPHTH SOL 2ML OS SCH (08:27)
[2024-01-12] MEDS: PROPARACAINE 0.5% OPHTH SOL 15ML OS ONE (08:27)
[2024-01-12] MEDS: ATROPINE SULFATE 1% OPHTH SOLN 2ML BTL OS SCH (08:27)
[2024-01-12] MEDS: OFLOXACIN 0.3 % (OCUFLOX) OPTH SOL 5ML OS SCH (08:28)
[2024-01-12] MEDS: TROPICAMIDE 1% OPHTH SOLN 15ML OS SCH (08:28)
[2024-01-12] MEDS: CEFUROXIME 1MG/0.1ML INTRACAMERAL INJ As Ordered ONE (09:04)
[2024-01-12] MEDS: BSS IRR 500ML/OMIDRIA 4ML IRR BAG (OR ONLY) As Ordered ONE (09:04)
[2024-01-12] MEDS: LIDOCAINE 1% SDV 5ML VIAL As Ordered ONE (09:04)
[2024-01-12] MEDS ORDERED: MIDAZOLAM INJ 2MG/2ML VIAL As Ordered ONE (09:07)
[2024-01-12] MEDS ORDERED: fentaNYL 100 MCG/2 ML INJECTION As Ordered ONE (09:07)
[2024-01-12] MEDS: TOBRADEX OPHTH OINT 3.5 GM As Ordered ONE (09:13)
[2024-01-12 09:15] VITALS: BP 118/67; TEMP 98.2; O2SAT 99
== END 2024-01-12 10:10 | disposition home or self-care (01) ==
LOC: M SDC 07:49
PROVIDERS: ATTEND Ophthalmology
DX: H25.12 Age-related nuclear cataract, left eye (principal); D50.9 Iron deficiency anemia, unspecified; R01.1 Cardiac murmur, unspecified; F17.210 Nicotine dependence, cigarettes, uncomplicated; Z90.49 Acquired absence of other specified parts of digestive tract; Z88.8 Allergy status to other drugs, medicaments and biological substances
CPT/HCPCS: 66984; J0697; J1097; J2250; J3010; V2632

== ENCOUNTER → 2024-01-15 | Outpatient (CLI) | payer MEDICARE, MEDICAID | LOC: M RAD 08:49 | PROVIDERS: ATTEND Nurse Practitioner Family | DX: K74.60 Unspecified cirrhosis of liver (principal); D69.6 Thrombocytopenia, unspecified; R18.8 Other ascites; D64.9 Anemia, unspecified; R16.1 Splenomegaly, not elsewhere classified ==

== ENCOUNTER → 2024-02-22 | Outpatient (CLI) | payer MEDICARE, MEDICAID ==
[2024-02-22 15:05] VITALS: BP 108/56; TEMP 98; O2SAT 100
[2024-02-22 15:20] LABS: HEMATOCRIT 36.1 % (42.0-52.0); HEMOGLOBIN 11.2 g/dl (13.5-17.5); MEAN CORPUSCULAR HEMOGLOBIN 25.2 pg (27.0-33.0); MEAN CORPUSCULAR VOLUME 81.3 fl (80.0-96.0); PLATELET COUNT, AUTOMATED 128 10^3/uL (150-450); RED BLOOD COUNT 4.44 10^6/uL (4.30-6.10); WHITE BLOOD COUNT 6.9 10^3/uL (4.0-10.0)
[2024-02-22 15:43] LABS: INR 1.37; PARTIAL THROMBOPLASTIN TIME 31.5 SECONDS (24.8-34.2); PROTHROMBIN TIME 16.4 SECONDS (12.5-14.5)
[2024-02-22 15:54] LABS: ALBUMIN 2.9 G/DL (3.2-5.2); ALKALINE PHOSPHATASE 106 U/L (46-116); ALT/SGPT 28 U/L (7.0-40); AST/SGOT 43 U/L (<34); BILIRUBIN,DIRECT 0.8 MG/DL (<0.4); BILIRUBIN,TOTAL 1.3 MG/DL (0.3-1.2); BLOOD UREA NITROGEN 6 MG/DL (9-23); CALCIUM LEVEL 9.1 MG/DL (8.3-10.6); CARBON DIOXIDE LEVEL 26 MMOL/L (20-31); CHLORIDE LEVEL 95 MMOL/L (98-107); CREATININE FOR GFR 0.61 MG/DL (0.70-1.30); GLOMERULAR FILTRATION RATE > 60.0 (>49); GLUCOSE, FASTING 157 MG/DL (74-106); MAGNESIUM LEVEL 1.8 MG/DL (1.8-2.4); POTASSIUM SERUM 4.1 MMOL/L (3.5-5.1); SODIUM LEVEL 129 MMOL/L (136-145); TOTAL PROTEIN 7.1 G/DL (5.7-8.2)
[2024-02-22 16:22] LABS: CREATININE,RANDOM URINE 22.2 MG/DL
== END ==
LOC: M IRPRO 14:54
PROVIDERS: ATTEND Internal Medicine Gastroenterology
DX: K70.31 Alcoholic cirrhosis of liver with ascites (principal)

== ENCOUNTER → 2025-08-28 | Outpatient (CLI) | payer MEDICARE, MEDICAID ==
[~2025-08-28] MED LIST changes: -LACT10SO3 PO; +LACT10SO94 PO
== END ==
LOC: M SOG 11:46
PROVIDERS: ATTEND Neuromusculoskeletal Medicine, Sports Medicine
DX: M25.551 Pain in right hip (principal); M16.11 Unilateral primary osteoarthritis, right hip